=== PATIENT | female | born 1940 | race Caucasian/White ===

== ENCOUNTER → 2017-06-21 | Outpatient (CLI) | payer MEDICARE ==
[~2017-06-21] MED LIST: ALPR.25T PO; ASPI1TAB PO; ASPI1TAB17 PO; ATEN25TA PO; ATR20T PO; BIOT5TAB PO; BMT1T PO; BUME0.5T3 PO; CHOL10003 PO; CPH250CIP PO; ESCT10T PO; FELO5TAB3 PO; FERR236T PO; FISH1CAP8 PO; FLD5TCR PO; GLUC-135 PO; INSU100I14 SC; KCL20TCR PO; LOSA100T16 PO; MELO-195 PO; METF-380 PO; MTF500T PO; MULT1TAB63 PO; OMEP-10 PO; OXC10TCR PO; OXYC-12 PO; OXYC10TA7 PO; PANT40TA PO; PNT40TEC PO; POLY17PO23 PO; POTA10CA43 PO; RIVA15TA PO; RIVA20TA2 PO; RNT150T PO; SENN1TAB76 PO; TMZP15C PO; TRET40CR2 TP; VALA100033 PO; ZLP10T PO
--- NOTE | 2017-06-21 10:54 | Diagnostic Imaging Report ---
EXAMINATION: Left lower extremity duplex venous ultrasound. TECHNIQUE: DVT protocol. Multiple sonographic images with color Doppler and waveform interrogation were performed of the left lower extremity veins with compression and augmentation maneuvers. INDICATION: Left leg pain. FINDINGS: The left lower extremity veins from the groin to below the knee veins were examined with normal color-flow, compressibility and waveform demonstrated. The great saphenous vein is patent. Mildly dilated varicose veins in the subcutaneous fat in the calf is seen near the area of pain. IMPRESSION: No evidence of DVT in the left lower extremity. Varicose veins are seen in the calf. Dictated by: Dictated on workstation # [id number]
== END ==
LOC: RAD 08:52
PROVIDERS: ATTEND Internal Medicine
DX: I83.812 Varicose veins of left lower extremity with pain (principal)

== ENCOUNTER 2017-11-14 06:00 | Outpatient (RCR) | payer MEDICARE | END 2017-11-16 | disposition home or self-care (01) | LOC: CR3 06:00 | PROVIDERS: ATTEND Internal Medicine | DX: Z29.8 Encounter for other specified prophylactic measures (principal) ==

== ENCOUNTER 2017-12-05 06:00 | Outpatient (RCR) | payer MEDICARE | END 2017-12-16 | disposition home or self-care (01) | LOC: CR3 06:00 | PROVIDERS: ATTEND Internal Medicine | DX: Z29.8 Encounter for other specified prophylactic measures (principal) ==

== ENCOUNTER 2018-01-11 06:00 | Outpatient (RCR) | payer MEDICARE | END 2018-01-18 | disposition home or self-care (01) | LOC: CR3 06:00 | PROVIDERS: ATTEND Internal Medicine | DX: Z29.8 Encounter for other specified prophylactic measures (principal) ==

== ENCOUNTER 2018-02-13 06:00 | Outpatient (RCR) | payer MEDICARE | END 2018-02-15 | disposition home or self-care (01) | LOC: CR3 06:00 | PROVIDERS: ATTEND Internal Medicine | DX: Z29.8 Encounter for other specified prophylactic measures (principal) ==

== ENCOUNTER 2018-03-20 06:00 | Outpatient (RCR) | payer MEDICARE | END 2018-03-22 | disposition home or self-care (01) | LOC: CR3 06:00 | PROVIDERS: ATTEND Internal Medicine | DX: Z29.8 Encounter for other specified prophylactic measures (principal) ==

== ENCOUNTER 2018-04-26 06:00 | Outpatient (RCR) | payer MEDICARE | END 2018-05-03 | disposition home or self-care (01) | LOC: CR3 06:00 | PROVIDERS: ATTEND Internal Medicine | DX: Z29.8 Encounter for other specified prophylactic measures (principal) ==

== ENCOUNTER 2018-05-22 06:00 | Outpatient (RCR) | payer MEDICARE | END 2018-05-31 | disposition home or self-care (01) | LOC: CR3 06:00 | PROVIDERS: ATTEND Internal Medicine | DX: Z29.8 Encounter for other specified prophylactic measures (principal) ==

== ENCOUNTER 2018-06-21 06:00 | Outpatient (RCR) | payer MEDICARE | END 2018-06-30 | disposition home or self-care (01) | LOC: CR3 06:00 | PROVIDERS: ATTEND Internal Medicine | DX: Z29.8 Encounter for other specified prophylactic measures (principal) ==

== ENCOUNTER 2018-07-31 06:00 | Outpatient (RCR) | payer MEDICARE | END 2018-08-02 | disposition home or self-care (01) | LOC: CR3 06:00 | PROVIDERS: ATTEND Internal Medicine | DX: Z29.8 Encounter for other specified prophylactic measures (principal) ==

== ENCOUNTER 2018-08-28 06:00 | Outpatient (RCR) | payer MEDICARE | END 2018-09-01 | disposition home or self-care (01) | LOC: CR3 06:00 | PROVIDERS: ATTEND Internal Medicine | DX: Z29.8 Encounter for other specified prophylactic measures (principal) ==

== ENCOUNTER → 2018-09-14 | Outpatient (CLI) | payer MEDICARE | LOC: CARD 08:25 | PROVIDERS: ATTEND Physician Assistant | DX: I10 Essential (primary) hypertension (principal); E78.5 Hyperlipidemia, unspecified; E11.9 Type 2 diabetes mellitus without complications; M19.91 Primary osteoarthritis, unspecified site | CPT/HCPCS: 93306 ==

== ENCOUNTER 2018-09-27 06:00 | Outpatient (RCR) | payer MEDICARE | END 2018-10-04 | disposition home or self-care (01) | LOC: CR3 06:00 | PROVIDERS: ATTEND Internal Medicine | DX: Z29.8 Encounter for other specified prophylactic measures (principal) ==

== ENCOUNTER 2018-10-18 06:00 | Outpatient (RCR) | payer MEDICARE | END 2018-11-03 | disposition home or self-care (01) | LOC: CR3 06:00 | PROVIDERS: ATTEND Internal Medicine | DX: Z29.8 Encounter for other specified prophylactic measures (principal) ==

== ENCOUNTER 2018-11-22 06:00 | Outpatient (RCR) | payer MEDICARE | END 2018-12-01 | disposition home or self-care (01) | LOC: CR3 06:00 | PROVIDERS: ATTEND Internal Medicine | DX: Z29.8 Encounter for other specified prophylactic measures (principal) ==

== ENCOUNTER 2019-01-01 06:00 | Outpatient (RCR) | payer MEDICARE | END 2019-01-03 | disposition home or self-care (01) | LOC: CR3 06:00 | PROVIDERS: ATTEND Internal Medicine | DX: Z29.8 Encounter for other specified prophylactic measures (principal) ==

== ENCOUNTER 2019-02-05 06:00 | Outpatient (RCR) | payer MEDICARE | END 2019-02-07 | disposition home or self-care (01) | LOC: CR3 06:00 | PROVIDERS: ATTEND Internal Medicine | DX: Z29.8 Encounter for other specified prophylactic measures (principal) ==

== ENCOUNTER 2019-03-12 06:00 | Outpatient (RCR) | payer MEDICARE | END 2019-03-14 | disposition home or self-care (01) | LOC: CR3 06:00 | PROVIDERS: ATTEND Internal Medicine | DX: Z29.8 Encounter for other specified prophylactic measures (principal) ==

== ENCOUNTER 2019-04-11 06:00 | Outpatient (RCR) | payer MEDICARE | END 2019-04-13 | disposition home or self-care (01) | LOC: CR3 06:00 | PROVIDERS: ATTEND Internal Medicine | DX: Z29.8 Encounter for other specified prophylactic measures (principal) ==

== ENCOUNTER 2019-05-09 06:00 | Outpatient (RCR) | payer MEDICARE | END 2019-05-16 | disposition home or self-care (01) | LOC: CR3 06:00 | PROVIDERS: ATTEND Internal Medicine | DX: Z29.8 Encounter for other specified prophylactic measures (principal) ==

== ENCOUNTER 2019-06-11 06:00 | Outpatient (RCR) | payer MEDICARE | END 2019-06-22 | disposition home or self-care (01) | LOC: CR3 06:00 | PROVIDERS: ATTEND Internal Medicine | DX: Z29.8 Encounter for other specified prophylactic measures (principal) ==

== ENCOUNTER 2019-07-25 06:00 | Outpatient (RCR) | payer MEDICARE | END 2019-07-27 | disposition home or self-care (01) | LOC: CR3 06:00 | PROVIDERS: ATTEND Internal Medicine | DX: Z29.8 Encounter for other specified prophylactic measures (principal) ==

== ENCOUNTER 2019-08-27 06:00 | Outpatient (RCR) | payer MEDICARE | END 2019-08-29 | disposition home or self-care (01) | LOC: CR3 06:00 | PROVIDERS: ATTEND Internal Medicine | DX: Z29.8 Encounter for other specified prophylactic measures (principal) ==

== ENCOUNTER 2019-09-26 06:00 | Outpatient (RCR) | payer MEDICARE ==
--- NOTE | 2019-09-24 17:15 | NUR ---
CONTACTED PT FOR INFECTIOUS DISEASE SCREENING (PER ADMINISTRATION ORDERS); PT DID NOT ANSWER PHONE
== END 2019-09-28 | disposition home or self-care (01) ==
LOC: CR3 06:00
PROVIDERS: ATTEND Internal Medicine
DX: Z29.8 Encounter for other specified prophylactic measures (principal)

== ENCOUNTER 2020-10-28 15:52 | Outpatient (RCR) | payer MEDICARE | END 2020-10-30 | disposition home or self-care (01) | LOC: CR3 15:52 | PROVIDERS: ATTEND Internal Medicine | DX: Z29.8 Encounter for other specified prophylactic measures (principal) ==

== ENCOUNTER 2020-12-01 06:00 | Outpatient (RCR) | payer MEDICARE | END 2020-12-02 | disposition home or self-care (01) | LOC: CR3 06:00 | PROVIDERS: ATTEND Internal Medicine | DX: Z29.8 Encounter for other specified prophylactic measures (principal) ==

== ENCOUNTER 2020-12-24 06:00 | Outpatient (RCR) | payer MEDICARE | END 2021-01-02 | disposition home or self-care (01) | LOC: CR3 06:00 | PROVIDERS: ATTEND Internal Medicine | DX: Z29.8 Encounter for other specified prophylactic measures (principal) ==

== ENCOUNTER → 2021-02-03 | Outpatient (RCR) | payer MEDICARE | LOC: CR3 01-04 14:00 | PROVIDERS: ATTEND Internal Medicine | DX: Z29.8 Encounter for other specified prophylactic measures (principal) ==

== ENCOUNTER 2021-03-08 14:11 | Outpatient (RCR) | payer MEDICARE | END 2021-03-10 | LOC: CR3 14:11 | PROVIDERS: ATTEND Internal Medicine | DX: Z29.8 Encounter for other specified prophylactic measures (principal) ==

== ENCOUNTER → 2021-04-14 | Outpatient (RCR) | payer MEDICARE | END | disposition home or self-care (01) | LOC: CR3 03-15 15:12 | PROVIDERS: ATTEND Internal Medicine | DX: Z29.8 Encounter for other specified prophylactic measures (principal) ==

== ENCOUNTER 2021-05-12 14:14 | Outpatient (RCR) | payer MEDICARE | END 2021-05-19 | disposition home or self-care (01) | LOC: CR3 14:14 | PROVIDERS: ATTEND Internal Medicine | DX: Z29.8 Encounter for other specified prophylactic measures (principal) ==

== ENCOUNTER → 2021-06-23 | Outpatient (RCR) | payer MEDICARE | END | disposition home or self-care (01) | LOC: CR3 05-24 16:33 | PROVIDERS: ATTEND Internal Medicine | DX: Z29.8 Encounter for other specified prophylactic measures (principal) ==

== ENCOUNTER 2021-08-09 15:28 | Outpatient (RCR) | payer MEDICARE | END 2021-08-15 | disposition home or self-care (01) | LOC: CR3 15:28 | PROVIDERS: ATTEND Internal Medicine | DX: Z29.8 Encounter for other specified prophylactic measures (principal) ==

== ENCOUNTER → 2021-09-15 | Outpatient (RCR) | payer MEDICARE | END | disposition home or self-care (01) | LOC: CR3 08-16 14:44 | PROVIDERS: ATTEND Internal Medicine | DX: Z29.8 Encounter for other specified prophylactic measures (principal) ==

== ENCOUNTER 2021-11-10 16:37 | Outpatient (RCR) | payer MEDICARE | END 2021-11-13 | disposition home or self-care (01) | LOC: CR3 16:37 | PROVIDERS: ATTEND Internal Medicine | DX: Z29.8 Encounter for other specified prophylactic measures (principal) ==

== ENCOUNTER 2022-01-12 14:34 | Outpatient (RCR) | payer MEDICARE | END 2022-01-13 | disposition home or self-care (01) | LOC: CR3 14:34 | PROVIDERS: ATTEND Internal Medicine | DX: Z29.8 Encounter for other specified prophylactic measures (principal) ==

== ENCOUNTER 2022-03-14 15:15 | Outpatient (RCR) | payer MEDICARE | END 2022-03-15 | disposition home or self-care (01) | LOC: CR3 15:15 | PROVIDERS: ATTEND Internal Medicine | DX: Z29.8 Encounter for other specified prophylactic measures (principal) ==

== ENCOUNTER 2022-05-11 14:37 | Outpatient (RCR) | payer MEDICARE | END 2022-05-15 | disposition home or self-care (01) | LOC: CR3 14:37 | PROVIDERS: ATTEND Internal Medicine | DX: Z29.8 Encounter for other specified prophylactic measures (principal) ==

== ENCOUNTER 2022-06-29 13:37 | Outpatient (RCR) | payer MEDICARE | END 2022-07-15 | disposition home or self-care (01) | LOC: CR3 13:37 | PROVIDERS: ATTEND Internal Medicine | DX: Z29.8 Encounter for other specified prophylactic measures (principal) ==

== ENCOUNTER 2022-09-12 14:02 | Outpatient (RCR) | payer MEDICARE | END 2022-09-15 | disposition home or self-care (01) | LOC: CR3 14:02 | PROVIDERS: ATTEND Internal Medicine | DX: Z29.8 Encounter for other specified prophylactic measures (principal) ==

== ENCOUNTER 2022-11-09 14:45 | Outpatient (RCR) | payer MEDICARE | END 2022-11-13 | disposition home or self-care (01) | LOC: CR3 14:45 | PROVIDERS: ATTEND Internal Medicine | DX: Z29.8 Encounter for other specified prophylactic measures (principal) ==

== ENCOUNTER 2022-11-28 15:15 | Outpatient (RCR) | payer MEDICARE | END 2023-01-13 | disposition home or self-care (01) | LOC: CR3 15:15 | PROVIDERS: ATTEND Internal Medicine | DX: Z29.8 Encounter for other specified prophylactic measures (principal) ==